=== PATIENT | male | born 1975 | race Caucasian/White ===

== ENCOUNTER 2020-10-28 11:32 | Inpatient (IN) | payer OTHER ==
[2020-10-28 12:16] VITALS: BMI 29.5
[2020-10-28] MEDS ORDERED: NICOTINE 10 MG CARTRIDGE (INHALER) IH PRN (16:27)
[2020-10-28] MEDS ORDERED: MAGNESIUM HYDROX 2400MG/30ML ORAL SUSPENSION 30 ML CUP PO PRN (16:27)
[2020-10-28] MEDS ORDERED: diazePAM 5 MG TABLET PO PRN (16:27)
[2020-10-28] MEDS ORDERED: MENTHOL/PHENOL 1 EACH UD MM PRN (16:27)
[2020-10-28] MEDS ORDERED: methaDONE HCL 10 MG TABLET (FOR DETOX USE ONLY) PO ONE (16:27)
[2020-10-28] MEDS ORDERED: ACETAMINOPHEN 325 MG TABLET (FP) PO PRN ×2 (16:27)
[2020-10-28] MEDS ORDERED: NALOXONE HCL 0.4 MG/ML VIAL IM PRN (16:27)
[2020-10-28] MEDS ORDERED: cloNIDine HCL 0.1 MG TABLET PO PRN (16:27)
[2020-10-28] MEDS ORDERED: IBUPROFEN 400 MG TABLET (FP) PO PRN (16:27)
[2020-10-28] MEDS ORDERED: BISMUTH SUBSALICYLATE 524 MG/30 ML PO PRN (16:27)
[2020-10-28] MEDS ORDERED: MAGNESIUM CITRATE 300 ML BOTTLE PO PRN (16:27)
[2020-10-28] MEDS ORDERED: MAG HYDROX/AL HYDROX/SIMETH 30 ML UNIT-DOSE CUP PO PRN (16:27)
[2020-10-28] MEDS: diazePAM 5 MG TABLET PO SCH ×2 (20:59→22:34)
[2020-10-28] MEDS: THIAMINE HCL 100 MG TABLET (FP) PO SCH (22:34)
[2020-10-28] MEDS: MELATONIN 5 MG TABLETS PO SCH (22:35)
[2020-10-29] MEDS: diazePAM 5 MG TABLET PO SCH ×4 (05:53→22:04)
[2020-10-29] MEDS ORDERED: methaDONE HCL 10 MG TABLET (FOR DETOX USE ONLY) ONE (09:42)
[2020-10-29] MEDS: PRENATAL VITAMINS W/ FOLIC ACID TABLET (FP) PO SCH (10:29)
[2020-10-29] MEDS: NICOTINE POLACRILEX 2 MG GUM BUC PRN ×2 (14:21→18:38)
[2020-10-29 18:28] LABS: HEMOGLOBIN 13.9 GM/dL (11.7-16.9); MCH 31.7 pg (25.7-33.7); MCHC 34.7 g/dl (32.0-35.9); MEAN CELL VOLUME 91.3 fl (80-96); MEAN PLT VOLUME 8.6 fl (7.5-11.1); PLATELET COUNT 164 10^3/uL (134-434); RBC 4.39 M/mm3 (4.00-5.60); RDW 15.6 % (11.9-15.9); WHITE BLOOD COUNT 4.6 K/mm3 (4.0-10.0)
[2020-10-29 18:37] LABS: ALBUMIN 3.1 g/dl (3.4-5.0); BLOOD UREA NITROGEN 9.9 mg/dL (7-18)
[2020-10-29 18:40] LABS: CREATININE 0.8 mg/dL (0.55-1.3)
[2020-10-29 18:41] LABS: BILIRUBIN,TOTAL 0.5 mg/dL (0.2-1); TOT PROT 7.8 g/dl (6.4-8.2)
[2020-10-29 19:31] LABS: HIV INTERPRETATION NEGATIVE (NEGATIVE)
[2020-10-29] MEDS: MELATONIN 5 MG TABLETS PO SCH (22:05)
[2020-10-29] MEDS: THIAMINE HCL 100 MG TABLET (FP) PO SCH (22:05)
[2020-10-30] MEDS: diazePAM 5 MG TABLET PO SCH ×3 (05:12→22:19)
[2020-10-30] MEDS: NICOTINE POLACRILEX 2 MG GUM BUC PRN ×3 (05:15→15:22)
[2020-10-30] MEDS ORDERED: methaDONE HCL 10 MG TABLET (FOR DETOX USE ONLY) PO ONE (10:00)
[2020-10-30] MEDS: PRENATAL VITAMINS W/ FOLIC ACID TABLET (FP) PO SCH (10:13)
[2020-10-30] MEDS: METHOCARBAMOL 500 MG TABLET PO PRN (10:13)
[2020-10-30] MEDS: THIAMINE HCL 100 MG TABLET (FP) PO SCH (22:19)
[2020-10-30] MEDS: MELATONIN 5 MG TABLETS PO SCH (22:19)
[2020-10-31] MEDS: NICOTINE POLACRILEX 2 MG GUM BUC PRN ×2 (05:26→08:39)
[2020-10-31] MEDS: METHOCARBAMOL 500 MG TABLET PO PRN (05:26)
[2020-10-31] MEDS ORDERED: diazePAM 5 MG TABLET PO SCH (06:00)
[2020-10-31 09:08] VITALS: BP 147/97; PULSE 77; TEMP 97.1
[2020-10-31] MEDS ORDERED: methaDONE HCL 10 MG TABLET (FOR DETOX USE ONLY) ONE (09:44)
[2020-11-01] MEDS ORDERED: diazePAM 5 MG TABLET PO ONE (06:00)
[2020-11-01] MEDS ORDERED: methaDONE HCL 10 MG TABLET (FOR DETOX USE ONLY) PO ONE (10:00)
== END 2020-10-31 10:07 | disposition home or self-care (01) | DRG 773 ==
LOC: YASAS 11:32 → Y6N 16:04 → Y3N 10-29 13:12
PROVIDERS: ADMIT Allergy & Immunology; ATTEND Allergy & Immunology
PROC: HZ2ZZZZ Detoxification Services for Substance Abuse Treatment (ICD-10-PCS; principal; 2020-10-28)
DX: F11.23 Opioid dependence with withdrawal (principal); F10.230 Alcohol dependence with withdrawal, uncomplicated; F14.10 Cocaine abuse, uncomplicated; F17.213 Nicotine dependence, cigarettes, with withdrawal
CPT/HCPCS: 36415; 80053; 85027; 86780; 87389; 93005; 93010; C9803; U0003; U0005